=== PATIENT | female | born 2000 | race African-American/Black ===

== ENCOUNTER 2022-01-29 23:58 | Inpatient (IN) ==
[2022-01-30 03:50] LABS: ABS Eosinophils 0.1 10^3/ul (0-0.6); ABS Lymphocytes 2.3 10^3/ul (1.0-4.8); ABS Monocytes 0.7 10^3/ul (0-0.8); ABS Neutrophils 4.2 10^3/ul (1.5-7.7); Eosinophil % 1.1 %; Hematocrit 38 % (35-47); Hemoglobin 12.7 g/dL (12.0-16.0); Lymphocyte % 31.4 %; Mean Corpuscular HGB Conc 34 g/dL (31-36); Mean Corpuscular Hemoglobin 30 pg (27-31); Mean Corpuscular Volume 90 fL (80-97); Mean Platelet Volume 8.4 fL (7.4-10.4); Nucleated Red Blood Cells % 0.1; Platelet Count 229 10^3/uL (150-450); Red Cell Distribution Width 13 % (10-15); White Blood Count 7.2 10^3/uL (3.5-10.8)
[2022-01-30 03:56] LABS: Urine Appearance Cloudy; Urine Bilirubin Negative (Negative); Urine Blood 1+ (Negative); Urine Color Yellow; Urine Glucose Negative (Negative); Urine Ketones Trace (Negative); Urine Nitrite Negative (Negative); Urine Protein Negative (Negative); Urine Specific Gravity 1.029 (1.002-1.030); Urine Urobilinogen Negative (Negative)
[2022-01-30 04:02] LABS: Urine Bacteria Absent (Absent); Urine Red Blood Cell 1+(3-5/hpf) (Absent); Urine Squamous Epithelial Cell Present (Absent); Urine White Blood Cell Trace(0-5/hpf) (Absent)
[2022-01-30 04:16] LABS: Urine Benzodiazepine Screen None Detected (None Detect); Urine Cannabinoids Screen None Detected (None Detect); Urine Opiates Screen None Detected (None Detect)
[2022-01-30 04:30] LABS: ALT 11 U/L (7-52); AST 16 U/L (13-39); Acetaminophen < 15 mcg/mL; Albumin 4.1 g/dL (3.2-5.2); Albumin/Globulin Ratio 1.9 (1-3); Alcohol, S < 13 mg/dL (<13); Alkaline Phosphatase 51 U/L (35-149); Anion Gap 8 mmol/L (2-11); Blood Urea Nitrogen 16 mg/dL (6-24); CO2 Carbon Dioxide 26 mmol/L (22-32); Calcium 9.2 mg/dL (8.6-10.3); Chloride 105 mmol/L (101-111); Globulin 2.2 g/dL (2-4); Glucose 94 mg/dL (70-100); Potassium 3.8 mmol/L (3.5-5.0); Salicylate < 2.50 mg/dL (<30); Sodium 139 mmol/L (135-145); Total Protein 6.3 g/dL (6.4-8.9); eGFR CKD-EPI 95.8 (>60)
[2022-01-30 04:43] LABS: TSH Ultra Thyroid Stim Horm 3.76 mcIU/mL (0.34-5.60)
[2022-01-30 06:02] LABS: HCG Pregnancy < 0.60 mIU/mL
[2022-01-30] MEDS ORDERED: Al Hydrox/Mg Hydrox/Simet LIQ 30 ML UDC PO PRN (08:06)
[2022-01-30] MEDS ORDERED: Nicotine GUM 4MG FRUIT FLAVOR PO PRN (08:06)
[2022-01-30] MEDS: Nicotine PATCH 21 MG/24 HR PATCH TRANSDERM SCH (11:25)
[2022-01-30] MEDS: Vitamin THERAPEUTIC TAB PO SCH (11:26)
[2022-01-31] MEDS: Vitamin THERAPEUTIC TAB PO SCH ×2 (07:26→08:46)
[2022-01-31] MEDS: Nicotine PATCH 21 MG/24 HR PATCH TRANSDERM SCH (07:26)
[2022-01-31 07:48] LABS: HDL Cholesterol 59.7 mg/dL
[2022-02-01] MEDS: Vitamin THERAPEUTIC TAB PO SCH (09:07)
[2022-02-01] MEDS: Nicotine PATCH 21 MG/24 HR PATCH TRANSDERM SCH (09:08)
[2022-02-01] MEDS ORDERED: Saline NASAL SPRAY 0.65% BTL BOTH NARES PRN (10:25)
[2022-02-01] MEDS: Oxymetazoline 0.05% NASAL SPR 15 ML BTL BOTH NARES SCH (22:25)
[2022-02-02 07:58] VITALS: BP 141/90
[2022-02-02] MEDS: Vitamin THERAPEUTIC TAB PO SCH (08:56)
[2022-02-02] MEDS: Oxymetazoline 0.05% NASAL SPR 15 ML BTL BOTH NARES SCH (08:57)
[2022-02-02] MEDS: Nicotine PATCH 21 MG/24 HR PATCH TRANSDERM SCH (08:57)
[2022-02-02] MEDS: Nicotine PATCH 7 MG/24 HR PATCH TRANSDERM SCH ×2 (10:00→11:50)
== END 2022-02-02 17:00 | disposition home or self-care (01) | DRG 751 ==
LOC: ED 23:58 → EDHOLD 01-30 08:06 → BSU 01-30 08:40
PROVIDERS: ADMIT Psychiatry & Neurology Psychiatry; ATTEND Psychiatry & Neurology Psychiatry